=== PATIENT | female | born 1985 | race Caucasian/White ===

== ENCOUNTER 2018-12-21 19:58 | Emergency (ER) | payer OTHER ==
[2018-12-21 20:17] VITALS: TEMP 98.5
--- NOTE | 2018-12-21 20:53 | ED ---
Female Urogenital HPI - General Chief complaint: Urogenital Stated complaint: Urogenital-12 wks Time Seen by Provider: 12/21/18 20:30 Source: patient Mode of arrival: ambulatory Limitations: no limitations - History of Present Illness Initial comments: This patient is a 33-year-old woman who presents with complaint of "uterine prolapse." When asked the patient what symptoms she is having, she currently states she is not having symptoms. She is not having any pain, vaginal discharge, or bleeding. The patient states that she was sent here from [place] to have an evaluation. 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 She states that with her last she was told that she had uterine prolapse by an emergency room physician, but no further studies or workup. MD Complaint: other Severity scale (1-10): 0 Improves with: none Worsens with: none Last Menstrual Period: 08/23/18 Patient : Yes Number of weeks : 12 Associated Symptoms: denies other symptoms - Related Data Home Medications Medication Instructions Recorded Confirmed Gummies 2 tab PO HS 12/21/18 12/21/18 Allergies Allergy/AdvReac Type Severity Reaction Status Date / Time duloxetine [From Cymbalta] Allergy Unknown Verified 12/21/18 20:44 ibuprofen [From Motrin] Allergy Nausea & Verified 12/21/18 20:44 Vomiting oxycodone Allergy Nausea & Verified 12/21/18 20:44 Vomiting Review of Systems ROS Statement: Those systems with pertinent positive or pertinent negative responses have been documented in the HPI. ROS Other: All systems not noted in ROS Statement are negative. Constitutional: Denies: fever, chills Respiratory: Denies: cough, dyspnea Cardiovascular: Denies: chest pain, palpitations Gastrointestinal: Denies: abdominal pain, nausea, vomiting Genitourinary: Denies: dysuria, hematuria, discharge, abnormal menses Musculoskeletal: Denies: back pain Skin: Denies: rash Past Medical History Past Medical History: No Reported History History of Any Multi-Drug Resistant Organisms: None Reported, MRSA Date of last positivie culture/infection: 2008 MDRO Source:: right arm pit Past Surgical History: No Surgical Hx Reported Past Psychological History: No Psychological Hx Reported, Bipolar, Depression Smoking Status: Current every day smoker Past Alcohol Use History: None Reported Past Drug Use History: None Reported General Exam Limitations: no limitations General appearance: alert, in no apparent distress Head exam: Present: atraumatic, normocephalic Eye exam: Present: normal appearance. Absent: scleral icterus, conjunctival injection Respiratory exam: Present: normal lung sounds bilaterally. Absent: respiratory distress, wheezes, rales, rhonchi, stridor Cardiovascular Exam: Present: regular rate, normal rhythm, normal heart sounds. Absent: systolic murmur, diastolic murmur, rubs, gallop GI/Abdominal exam: Present: soft. Absent: distended, tenderness, guarding, rebound, rigid, mass External exam: Present: normal external exam, other (RN Veronica present). Absent: erythema, swelling, lesions, lacerations, ecchymosis Speculum exam: Present: normal speculum exam. Absent: erythema, vaginal discharge, cervical discharge, vaginal bleeding, foreign body, tissue, laceration By manual exam: Present: normal by manual exam, uterine enlargement. Absent: cervical motion tenderness, adnexal tenderness, adnexal mass, uterine tenderness Extremities exam: Present: normal inspection, normal capillary refill. Absent: pedal edema, calf tenderness Back exam: Present: normal inspection. Absent: CVA tenderness (R), CVA tenderness (L), paraspinal tenderness Neurological exam: Present: alert Skin exam: Present: warm, dry, intact, normal color. Absent: rash Course Vital Signs 12/21/18 20:12 Temperature 98.5 F Pulse Rate 99 Respiratory 18 Rate Blood Pressure 112/74 O2 Sat by Pulse 97 Oximetry Disposition Clinical Impression: Intrauterine Disposition: HOME SELF-CARE Condition: Good Instructions (If sedation given, give patient instructions): at 11 to 14 Weeks (ED) Is patient prescribed a controlled substance at d/c from ED?: No Referrals: None,Stated [Primary Care Provider] - 1-2 days
--- NOTE | 2018-12-22 01:17 | US ---
EXAM: US , Transvaginal CLINICAL HISTORY: ITS.REASON US Reason: Pain TECHNIQUE: Real-time transvaginal obstetrical ultrasound of the maternal pelvis and a first trimester with image documentation. Transvaginal imaging was used for better evaluation of the fetus and adnexa. COMPARISON: No relevant prior studies available. FINDINGS: 12 week 1 day intrauterine gestation, normal heart rate, no subchorionic hemorrhage, hemorrhagic corpus luteum cyst of in the left ovary IMPRESSION: See above
[2018-12-22 02:00] VITALS: BP 116/60; PULSE 65; RESP 16
== END 2018-12-22 02:10 | disposition home or self-care (01) ==
LOC: EC 19:58
DX: O34.521 Maternal care for prolapse of gravid uterus, first trimester (principal); O99.331 Smoking (tobacco) complicating pregnancy, first trimester; F17.200 Nicotine dependence, unspecified, uncomplicated; Z86.14 Personal history of Methicillin resistant Staphylococcus aureus infection; Z88.8 Allergy status to other drugs, medicaments and biological substances; Z88.6 Allergy status to analgesic agent; Z88.5 Allergy status to narcotic agent; Z3A.12 12 weeks gestation of pregnancy
CPT/HCPCS: 76801; 76813; 99284